=== PATIENT | female | born 1970 | race Caucasian/White ===

== ENCOUNTER 2017-04-18 09:58 | Emergency (ER) | payer BC, OTHER ==
[~2017-04-18] VITALS: Ht 172.7 cm; Wt 79.2 kg
[2017-04-18] MEDS ORDERED: OXYcodone/APAP 5/325MG TABLET ONE (10:50)
[2017-04-18] MEDS ORDERED: DIAZEPAM 5 MG TABLET ONE (10:50)
[2017-04-18] MEDS ORDERED: DIAZEPAM 5 MG TABLET PO ONE (11:00)
[2017-04-18] MEDS ORDERED: OXYcodone/APAP 5/325MG TABLET PO ONE (11:00)
[2017-04-18 12:23] VITALS: BP 110/70
== END 2017-04-18 12:25 | disposition home or self-care (01) ==
LOC: ED 12:15
DX: S39.012A Strain of muscle, fascia and tendon of lower back, initial encounter (principal); X58.XXXA Exposure to other specified factors, initial encounter; Y93.89 Activity, other specified; Y92.89 Other specified places as the place of occurrence of the external cause; Y99.8 Other external cause status
CPT/HCPCS: 72110; 99284; J7512